=== PATIENT | female | born 1970 | race Two or more races ===

== ENCOUNTER 2022-07-04 10:07 | Emergency (ER) | payer SELFPAY ==
[2022-07-04 10:27] VITALS: BP 114/86; PULSE 60; RESP 20; TEMP 97.5; BMI 26.4
[2022-07-04] MEDS ORDERED: KETOROLAC TROMETHAMINE 30 MG/1 ML VIAL IM ONE (11:46)
[2022-07-04] MEDS ORDERED: METHOCARBAMOL 500 MG TABLET PO ONE (11:46)
[2022-07-04] MEDS ORDERED: METHOCARBAMOL 500 MG TABLET ONE (11:48)
[2022-07-04] MEDS ORDERED: KETOROLAC TROMETHAMINE 30 MG/1 ML VIAL ONE (11:48)
== END 2022-07-04 12:45 | disposition home or self-care (01) ==
LOC: JERFT 10:07 → JER 10:07 → JERFT 12:45
PROC: 3E0233Z Introduction of Anti-inflammatory into Muscle, Percutaneous Approach (ICD-10-PCS; principal; 2022-07-04)
DX: S20.20XA Contusion of thorax, unspecified, initial encounter (principal); W18.42XA Slipping, tripping and stumbling without falling due to stepping into hole or opening, initial encounter
CPT/HCPCS: 71046-TC-FY; 93005; 93010; 99284-25